=== PATIENT | female | born 1950 | race Caucasian/White ===

== ENCOUNTER 2021-11-20 09:00 | Outpatient (RCR) | payer MEDICARE, SELFPAY ==
--- NOTE | 2021-11-07 18:02 | PT.OIE ---
Current Diagnoses Other acute postprocedural pain (11/07/21) Abnormal posture (11/07/21) Weakness (11/07/21) Other specified postprocedural states (11/07/21) Visit Care Team Role Provider Type Other Providers Specialty: Address: Phone: Fax: Email: Zaida Cantu MD Family Provider Non-Staff Primary Care Provider Specialty: Medical Address: [address] [place], [address] Email: Diana Maciel PA-C Attending Provider Non-Staff Referring Provider Specialty: Medical Address: [address] [place], [address] Email: Physical Therapy Initial Evaluation PT-OP-A Visit Information Start: 11/04/21 17:04 Freq: Status: Active Protocol: Document 11/07/21 13:45 AW (Rec: 11/05/21 08:58 AW [id number]) Out-Patient Physical Therapy Visit Information Visit Information Visit Type Initial Evaluation Visit Start Time 13:00 Visit Stop Time 13:45 Total Visit Minutes 45 Visit Number 1 Number of RN CASE MANAGER Visits 0 Evaluation Information Evaluation Date 11/07/21 Precautions Precautions osteopenia PT-OP-B Current Condition Start: 11/04/21 17:04 Freq: Status: Active Protocol: Document 11/07/21 13:45 AW (Rec: 11/05/21 08:58 AW [id number]) Current Condition History of Current Condition Onset Date August 2021 Current Complaints decreased RUE strength; shooting pain R chest wall & along thoracotomy scar History of Current Condition Kristie underwent resection of right lower lobe for lung cancer via right thoracotomy on 08/19/21. She also had mediastinal lymph node dissection. She was limited in her RUE movement per protocol for several weeks and feels she got weaker. She no longer has any limitations. She has had persistent neuropathic pain (worse when she discontinued oxycodone) and right arm weakness since then. She had lower extremity swelling which was limiting her walking and interrupting her sleep. She has u/s to rule out DVT which was negative - no clot. Swelling has resolved completely. She used to walk briskly 30 minutes per day but has been less active since surgery. Residual neuropathic pain has now largely resolved but not completely. Sleep is better with gabapentin taken 3x daily . Pt reports chronic left knee pain due to OA. She gets injections every six months and will have her next injection on 11/20.She is now walking on her treadmill 3 miles/day. Rides stationary bike as well. PMH includes osteopenia, uterine fibroids, scoliosis ( 20 deg to the left with apex at L3(, B radius/ulna fracture with plates R arm, L rotator cuff tear. Prior Treatments and Tests No prior PT Future Testing and Treatments Planned 6 month follow up with oncology in February. Treatment Goals Patient/Caregiver Goals Lift 25 # bag of dog food with both arms. Lift groceries, Improve posture. Prior Functional Status Baseline Function- ADL's Independent Baseline Function- Mobility Independent Baseline Function- Other Could lift groceries with either arm without difficulty. PT-OP-C Subjective Start: 11/04/21 17:04 Freq: Status: Active Protocol: Document 11/07/21 13:45 AW (Rec: 11/07/21 14:14 AW [id number]) OP-PT Pain Assessment Pain Assessment Grid Paper Pain Assessment Grid Completed Yes: Shooting pain 4/10 along thoracotomy scar and anterior chest wall Home Pain Medication Use Pain Medications Used Yes Home Pain Medication Frequency Gabapentin 3x daily Patient Goal Reduce Comments Pain Comments Gabapentin is effective and helps pt sleep. No longer taking oxycodone. PT-OP-F Manual Assessment Start: 11/04/21 17:04 Freq: Status: Active Protocol: Document 11/07/21 13:45 AW (Rec: 11/07/21 14:14 AW [id number]) Manual Assessments Soft Tissue Assessment Soft Tissue Mobility Assessment Tight pec major, pec minor, levator scap, teres, lats - right side most affected. Tender along thoracotomy scar and right lateral ribs ~6-. Joint Mobility Assessment Joint Mobility Assessment GHJ glides WNL bilaterally without restriction Other Manual Assessments Other Manual Assessments Well-healed thoracotomy scar with fair to good mobility. PT-OP-H Neuro Start: 11/04/21 17:04 Freq: Status: Active Protocol: Document 11/07/21 13:45 AW (Rec: 11/07/21 17:33 AW [id number]) Sensation Evaluation Gross Sensation Gross Sensation Trunk Impaired Sensation Description Tingling,Burning Dermatome Impairments T4,T5,T6,T7,T8 Comments Summary Comments Burning, shooting pain and tingling along thoracotomy scar and anterior chest wall. PT-OP-J Posture/Palpation/Skin Start: 11/04/21 17:04 Freq: Status: Active Protocol: Document 11/07/21 13:45 AW (Rec: 11/07/21 17:33 AW [id number]) Posture Evaluation Comments Posture Comments Pt sits and stands with severely rounded shoulders. Left AC is elevated compared with right. Scapulae are excessively protracted. Leftward scoliosis in lumbar spine (apex L3). PT-OP-K Range of Motion Start: 11/04/21 17:04 Freq: Status: Active Protocol: Document 11/07/21 13:45 AW (Rec: 11/07/21 17:33 AW [id number]) Shoulder Goniometric Range of Motion Shoulder right Testing Position Sitting Flexion 140 Extension 65 Abduction 160 Horizontal Abduction 110 External Rotation at 0 degrees Abduction 80 Internal Rotation Behind Back (text) T8 left Shoulder ROM WFL Yes Testing Position Sitting Flexion 150 Extension 70 Abduction 162 Horizontal Abduction 105 External Rotation at 0 degrees Abduction 80 Internal Rotation Behind Back (text) T2 Shoulder ROM Limitations Shoulder ROM Limitations Soft Tissue Tightness Elbow/Forearm Range of Motion Elbow/Forearm ROM Limitations Comments Full ROM, no restriction PT-OP-M Strength Start: 11/04/21 17:04 Freq: Status: Active Protocol: Document 11/07/21 13:45 AW (Rec: 11/07/21 18:00 AW [id number]) Scapula Strength Scapula Manual Muscle Testing Right Elevation (C4) 5 Normal Adduction 4 Good Depression 4- Good- Shoulder Strength Shoulder Manual Muscle Testing Right Flexion 4 Good Extension 4 Good Abduction (C5) 4 Good External Rotation 4 Good Internal Rotation 4+ Good+ Left Flexion 4+ Good+ Extension 4+ Good+ Abduction (C5) 4+ Good+ External Rotation 4+ Good+ Internal Rotation 5 Normal PT-OP-Q Treatments Start: 11/04/21 17:04 Freq: Status: Active Protocol: Document 11/07/21 13:45 AW (Rec: 11/07/21 18:00 AW [id number]) Therapeutic Exercises Supine Exercises lower trap activation Supine Exercise Name lower trap activation Side bilateral Comments on table; pt can not get on/ off floor, will practice in standing at home pec stretch Supine Exercise Name pec stretch Side bilateral Equipment Used 1/2 foam roll Comments pt does not have equip at home Standing Exercises doorway pec stretch Standing Exercise Name doorway pec stretch Side bilateral Comments ~75-90 deg abduction; HEP Self-Care/Home Management Treatment Education Patient Education Home Exercise Program,Posture Other Education Educated pt on lymphedema risk due to mediastinal lymph node dissection. No edema noted today but pt understands precautions and need for treatment if swelling develops . Initiated postural education and issued short HEP to begin addressing tight pecs and weak scapular stabilizers. PT-OP-T Assessment and Plan Start: 11/04/21 17:04 Freq: Status: Active Protocol: Document 11/07/21 13:45 AW (Rec: 11/07/21 18:00 AW [id number]) Physical Therapy Assessment Rehab Potential Rehabilitation Potential Good Evaluation Complexity Number of Personal Factors/Comorbidities 1-2 Number of Body Systems Impaired 3 Clinical Presentation at Evaluation Stable Impairments Impairments Pain,Posture,ROM,Sensation, Soft Tissue Mobility,Strength Goals Three Impairment burning pain Teacher Public Health Goal (LTG) Kristie will report 50% reduction in burning pain at thoracotomy scar and anterior chest wall. LTG Duration 01/30/22 Two Impairment ROM Teacher Public Health Goal (LTG) Kristie will have right IR ROM measured by reaching behind her back to T5 or higher to improve ease with dressing and other self-care tasks. LTG Duration 01/30/22 One Impairment strength Short Term Goal (STG) Kristie will improve MMT to 4+/5 or greater in both shoulders STG Duration 12/19/21 Nursing Home Goal (LTG) Kristie will be able to lift grocery bags from floor to table height without increase in baseline pain LTG Duration 01/30/22 Assessment Summary Assessment Kristie is a 71 yo woman who attends outpatient physical therapy 2.5 months post- thoracotomy with right lower lobe resection to treat lung cancer. She also had mediastinal lymph node resection. All pathology had clear margins. Kristie now complains of burning pain along her thoracotomy scar and anterior chest wall. She is also concerned about loss of strength following restricted shoulder mobility after surgery. She presents with tightness in her pecs, levator scapula, and lats. She has crepitus along her clavicles with upper extremity overhead movements. Her RUE ROM is relatively similar to her LUE except for internal rotation which is affecting her ADL management. Kristie is expected to benefit from skilled PT to address her soft tissue mobility and strength. Managing neuropathic pain will be more challenging but could be incorporated into PT plan. Physical Therapy Plan Frequency and Duration Frequency of Treatment 2x/Week Duration of treatment (weeks) 12 Plan of Care Start Date 11/07/21 Plan of Care End Date 01/30/22 Therapeutic Interventions Therapeutic Interventions Home Exercise Program, Lymphedema Management,Manual Therapy,Self-Care/Home Management,Soft Tissue Mobilization,Therapeutic Activities,Therapeutic Exercises Modalities Cold Pack/Ice Massage,Electric Stimulation,Hot Packs, Ultrasound Next Visit Focus/Plan Next Note Type Treatment Note Next Visit Plan Assess rib mobility and breathing mechanics. STM pecs, lats, intercostals. Scar mobilization as needed. Review stretches. Work on posture and UE strength.
--- NOTE | 2021-11-07 18:02 | PT.OPPOC ---
Physical, Occupational & Speech Therapy At [facility] Current Diagnoses Other acute postprocedural pain (11/07/21) Abnormal posture (11/07/21) Weakness (11/07/21) Other specified postprocedural states (11/07/21) Visit Care Team Role Provider Type Other Providers Specialty: Address: Phone: Fax: Email: Zaida Cantu MD Family Provider Non-Staff Primary Care Provider Specialty: Medical Address: [address] [place] [address], [phone] Email: Diana Maciel PA-C Attending Provider Non-Staff Referring Provider Specialty: Medical Address: [address] [place], [address] Email: Plan Of Care PT-OP-T Assessment and Plan Start: 11/04/21 17:04 Freq: Status: Active Protocol: Document 11/07/21 13:45 AW (Rec: 11/07/21 18:00 AW [id number]) Physical Therapy Assessment Rehab Potential Rehabilitation Potential Good Evaluation Complexity Number of Personal Factors/Comorbidities 1-2 Number of Body Systems Impaired 3 Clinical Presentation at Evaluation Stable Impairments Impairments Pain,Posture,ROM,Sensation, Soft Tissue Mobility,Strength Goals Three Impairment burning pain Snf Goal (LTG) Kristie will report 50% reduction in burning pain at thoracotomy scar and anterior chest wall. LTG Duration 01/30/22 Two Impairment ROM Quality Reviewer Goal (LTG) Kristie will have right IR ROM measured by reaching behind her back to T5 or higher to improve ease with dressing and other self-care tasks. LTG Duration 01/30/22 One Impairment strength Short Term Goal (STG) Kristie will improve MMT to 4+/5 or greater in both shoulders STG Duration 12/19/21 Quality Reviewer Goal (LTG) Kristie will be able to lift grocery bags from floor to table height without increase in baseline pain LTG Duration 01/30/22 Assessment Summary Assessment Kristie is a 71 yo woman who attends outpatient physical therapy 2.5 months post- thoracotomy with right lower lobe resection to treat lung cancer. She also had mediastinal lymph node resection. All pathology had clear margins. Kristie now complains of burning pain along her thoracotomy scar and anterior chest wall. She is also concerned about loss of strength following restricted shoulder mobility after surgery. She presents with tightness in her pecs, levator scapula, and lats. She has crepitus along her clavicles with upper extremity overhead movements. Her RUE ROM is relatively similar to her LUE except for internal rotation which is affecting her ADL management. Kristie is expected to benefit from skilled PT to address her soft tissue mobility and strength. Managing neuropathic pain will be more challenging but could be incorporated into PT plan. Physical Therapy Plan Frequency and Duration Frequency of Treatment 2x/Week Duration of treatment (weeks) 12 Plan of Care Start Date 11/07/21 Plan of Care End Date 01/30/22 Therapeutic Interventions Therapeutic Interventions Home Exercise Program, Lymphedema Management,Manual Therapy,Self-Care/Home Management,Soft Tissue Mobilization,Therapeutic Activities,Therapeutic Exercises Modalities Cold Pack/Ice Massage,Electric Stimulation,Hot Packs, Ultrasound Next Visit Focus/Plan Next Note Type Treatment Note Next Visit Plan Assess rib mobility and breathing mechanics. STM pecs, lats, intercostals. Scar mobilization as needed. Review stretches. Work on posture and UE strength. Plan of Care Dates Plan of Care Start Date 11/07/21 Plan of Care End Date 01/30/22 Electronically Signed by: Mara Nguyen PT 11/07/21 7620 If you are in agreement with this Plan of Care, please return a signed and dated copy. I have reviewed this Plan of Care and certify that the skilled therapy services above are required to meet the patient?s needs. Physician Signature Date Printed Name and Credentials Clinical Instructor Signature Printed Name and Credentials
--- NOTE | 2021-11-13 16:27 | PT.OTN ---
Current Diagnoses Other acute postprocedural pain (11/13/21) Abnormal posture (11/13/21) Weakness (11/13/21) Other specified postprocedural states (11/13/21) Physical Therapy Treatment Note PT-OP-A Visit Information Start: 11/04/21 17:04 Freq: Status: Active Protocol: Document 11/13/21 14:40 AW (Rec: 11/13/21 16:25 AW [id number]) Out-Patient Physical Therapy Visit Information Visit Information Visit Type Treatment Note Visit Start Time 15:15 Visit Stop Time 16:00 Total Visit Minutes 45 Visit Number 2 Number of PROCESS IMPROVEMENT SPECIALIST Visits 0 Evaluation Information Evaluation Date 11/07/21 Precautions Precautions osteopenia PT-OP-B Current Condition Start: 11/04/21 17:04 Freq: Status: Active Protocol: Document 11/07/21 13:45 AW (Rec: 11/05/21 08:58 AW [id number]) Current Condition History of Current Condition Onset Date August 2021 Current Complaints decreased RUE strength; shooting pain R chest wall & along thoracotomy scar History of Current Condition Kristie underwent resection of right lower lobe for lung cancer via right thoracotomy on 08/19/21. She also had mediastinal lymph node dissection. She was limited in her RUE movement per protocol for several weeks and feels she got weaker. She no longer has any limitations. She has had persistent neuropathic pain (worse when she discontinued oxycodone) and right arm weakness since then. She had lower extremity swelling which was limiting her walking and interrupting her sleep. She has u/s to rule out DVT which was negative - no clot. Swelling has resolved completely. She used to walk briskly 30 minutes per day but has been less active since surgery. Residual neuropathic pain has now largely resolved but not completely. Sleep is better with gabapentin taken 3x daily . Pt reports chronic left knee pain due to OA. She gets injections every six months and will have her next injection on 11/20.She is now walking on her treadmill 3 miles/day. Rides stationary bike as well. PMH includes osteopenia, uterine fibroids, scoliosis ( 20 deg to the left with apex at L3(, B radius/ulna fracture with plates R arm, L rotator cuff tear. Prior Treatments and Tests No prior PT Future Testing and Treatments Planned 6 month follow up with oncology in February. Treatment Goals Patient/Caregiver Goals Lift 25 # bag of dog food with both arms. Lift groceries, Improve posture. Prior Functional Status Baseline Function- ADL's Independent Baseline Function- Mobility Independent Baseline Function- Other Could lift groceries with either arm without difficulty. PT-OP-C Subjective Start: 11/04/21 17:04 Freq: Status: Active Protocol: Document 11/13/21 14:40 AW (Rec: 11/13/21 16:25 AW [id number]) OP-PT Subjective Patient Comments Patient Comments Has some questions about stretches. Saw surgeon yesterday and is planning to have umbilical hernia repair in a few months. PT-OP-F Manual Assessment Start: 11/04/21 17:04 Freq: Status: Active Protocol: Document 11/07/21 13:45 AW (Rec: 11/07/21 14:14 AW [id number]) Manual Assessments Soft Tissue Assessment Soft Tissue Mobility Assessment Tight pec major, pec minor, levator scap, teres, lats - right side most affected. Tender along thoracotomy scar and right lateral ribs ~6-. Joint Mobility Assessment Joint Mobility Assessment GHJ glides WNL bilaterally without restriction Other Manual Assessments Other Manual Assessments Well-healed thoracotomy scar with fair to good mobility. PT-OP-H Neuro Start: 11/04/21 17:04 Freq: Status: Active Protocol: Document 11/07/21 13:45 AW (Rec: 11/07/21 17:33 AW [id number]) Sensation Evaluation Gross Sensation Gross Sensation Trunk Impaired Sensation Description Tingling,Burning Dermatome Impairments T4,T5,T6,T7,T8 Comments Summary Comments Burning, shooting pain and tingling along thoracotomy scar and anterior chest wall. PT-OP-J Posture/Palpation/Skin Start: 11/04/21 17:04 Freq: Status: Active Protocol: Document 11/07/21 13:45 AW (Rec: 11/07/21 17:33 AW [id number]) Posture Evaluation Comments Posture Comments Pt sits and stands with severely rounded shoulders. Left AC is elevated compared with right. Scapulae are excessively protracted. Leftward scoliosis in lumbar spine (apex L3). PT-OP-K Range of Motion Start: 11/04/21 17:04 Freq: Status: Active Protocol: Document 11/07/21 13:45 AW (Rec: 11/07/21 17:33 AW [id number]) Shoulder Goniometric Range of Motion Shoulder right Testing Position Sitting Flexion 140 Extension 65 Abduction 160 Horizontal Abduction 110 External Rotation at 0 degrees Abduction 80 Internal Rotation Behind Back (text) T8 left Shoulder ROM WFL Yes Testing Position Sitting Flexion 150 Extension 70 Abduction 162 Horizontal Abduction 105 External Rotation at 0 degrees Abduction 80 Internal Rotation Behind Back (text) T2 Shoulder ROM Limitations Shoulder ROM Limitations Soft Tissue Tightness Elbow/Forearm Range of Motion Elbow/Forearm ROM Limitations Comments Full ROM, no restriction PT-OP-M Strength Start: 11/04/21 17:04 Freq: Status: Active Protocol: Document 11/07/21 13:45 AW (Rec: 11/07/21 18:00 AW [id number]) Scapula Strength Scapula Manual Muscle Testing Right Elevation (C4) 5 Normal Adduction 4 Good Depression 4- Good- Shoulder Strength Shoulder Manual Muscle Testing Right Flexion 4 Good Extension 4 Good Abduction (C5) 4 Good External Rotation 4 Good Internal Rotation 4+ Good+ Left Flexion 4+ Good+ Extension 4+ Good+ Abduction (C5) 4+ Good+ External Rotation 4+ Good+ Internal Rotation 5 Normal PT-OP-Q Treatments Start: 11/04/21 17:04 Freq: Status: Active Protocol: Document 11/13/21 14:40 AW (Rec: 11/13/21 16:25 AW [id number]) Therapeutic Exercises Supine Exercises LTR Supine Exercise Name LTR diaphragmatic breathing Supine Exercise Name diaphragmatic breathing Sidelying Exercises open book Comments pt does not tolerate sidelying due to knee pain Sitting Exercises cervical retraction Sitting Exercise Name cervical retraction Comments HEP upper trap stretch Sitting Exercise Name upper trap stretch Side bilateral Comments HEP scapular retraction Sitting Exercise Name scapular retraction Side bilateral Comments HEP IR stretch Sitting Exercise Name IR stretch Equipment Used towel Comments HEP Standing Exercises GH ext, row Standing Exercise Name GH ext, row Side bilateral Resistance TB1 Reps/Minutes x12 Comments HEP doorway pec stretch Standing Exercise Name doorway pec stretch Side bilateral Comments ~75-90 deg abduction; HEP review Self-Care/Home Management Treatment Education Patient Education Home Exercise Program,Posture Other Education Added postural work, UT stretch, rows, and GH extensions for HEP PT-OP-T Assessment and Plan Start: 11/04/21 17:04 Freq: Status: Active Protocol: Document 11/13/21 14:40 AW (Rec: 11/13/21 16:25 AW [id number]) Physical Therapy Assessment Goals Three Impairment burning pain Mcfp Goal (LTG) Kristie will report 50% reduction in burning pain at thoracotomy scar and anterior chest wall. LTG Duration 01/30/22 Two Impairment ROM Dry Plasterer Helper Goal (LTG) Kristie will have right IR ROM measured by reaching behind her back to T5 or higher to improve ease with dressing and other self-care tasks. LTG Duration 01/30/22 One Impairment strength Short Term Goal (STG) Kristie will improve MMT to 4+/5 or greater in both shoulders STG Duration 12/19/21 Dry Plasterer Helper Goal (LTG) Kristie will be able to lift grocery bags from floor to table height without increase in baseline pain LTG Duration 01/30/22 Assessment Summary Assessment Kristie is highly motivated and most interested in exercise today. She responds well to postural education and exercise to reinforce. Will plan to assess rib mobility for this post-thoracotomy pt in next few visits. Physical Therapy Plan Frequency and Duration Frequency of Treatment 2x/Week Duration of treatment (weeks) 12 Plan of Care Start Date 11/07/21 Plan of Care End Date 01/30/22 Therapeutic Interventions Therapeutic Interventions Home Exercise Program, Lymphedema Management,Manual Therapy,Self-Care/Home Management,Soft Tissue Mobilization,Therapeutic Activities,Therapeutic Exercises Modalities Cold Pack/Ice Massage,Electric Stimulation,Hot Packs, Ultrasound Next Visit Focus/Plan Next Note Type Treatment Note Next Visit Plan *Pt does not tolerate sidelying.* Assess rib mobility. STM pecs, lats, intercostals. Scar mobilization as needed. Review HEP and progress where able.
--- NOTE | 2021-11-18 12:24 | PT.OTN ---
Current Diagnoses Other acute postprocedural pain (11/18/21) Abnormal posture (11/18/21) Weakness (11/18/21) Other specified postprocedural states (11/18/21) Physical Therapy Treatment Note PT-OP-A Visit Information Start: 11/04/21 17:04 Freq: Status: Active Protocol: Document 11/18/21 11:19 [facility] (Rec: 11/18/21 12:23 [facility] [id number]) Out-Patient Physical Therapy Visit Information Visit Information Visit Type Treatment Note Visit Note 04/18 Visit Start Time 11:20 Visit Stop Time 12:05 Total Visit Minutes 45 Visit Number 3 Number of SALES ENGINEERING MANAGER Visits 0 PT-OP-B Current Condition Start: 11/04/21 17:04 Freq: Status: Active Protocol: Document 11/07/21 13:45 AW (Rec: 11/05/21 08:58 AW [id number]) Current Condition History of Current Condition Onset Date August 2021 Current Complaints decreased RUE strength; shooting pain R chest wall & along thoracotomy scar History of Current Condition Kristie underwent resection of right lower lobe for lung cancer via right thoracotomy on 08/19/21. She also had mediastinal lymph node dissection. She was limited in her RUE movement per protocol for several weeks and feels she got weaker. She no longer has any limitations. She has had persistent neuropathic pain (worse when she discontinued oxycodone) and right arm weakness since then. She had lower extremity swelling which was limiting her walking and interrupting her sleep. She has u/s to rule out DVT which was negative - no clot. Swelling has resolved completely. She used to walk briskly 30 minutes per day but has been less active since surgery. Residual neuropathic pain has now largely resolved but not completely. Sleep is better with gabapentin taken 3x daily . Pt reports chronic left knee pain due to OA. She gets injections every six months and will have her next injection on 11/20.She is now walking on her treadmill 3 miles/day. Rides stationary bike as well. PMH includes osteopenia, uterine fibroids, scoliosis ( 20 deg to the left with apex at L3(, B radius/ulna fracture with plates R arm, L rotator cuff tear. Prior Treatments and Tests No prior PT Future Testing and Treatments Planned 6 month follow up with oncology in February. Treatment Goals Patient/Caregiver Goals Lift 25 # bag of dog food with both arms. Lift groceries, Improve posture. Prior Functional Status Baseline Function- ADL's Independent Baseline Function- Mobility Independent Baseline Function- Other Could lift groceries with either arm without difficulty. PT-OP-C Subjective Start: 11/04/21 17:04 Freq: Status: Active Protocol: Document 11/18/21 11:19 [facility] (Rec: 11/18/21 12:23 [facility] [id number]) OP-PT Subjective Patient Comments Patient Comments Pt reports she has some questions w/HEP PT-OP-F Manual Assessment Start: 11/04/21 17:04 Freq: Status: Active Protocol: Document 11/07/21 13:45 AW (Rec: 11/07/21 14:14 AW [id number]) Manual Assessments Soft Tissue Assessment Soft Tissue Mobility Assessment Tight pec major, pec minor, levator scap, teres, lats - right side most affected. Tender along thoracotomy scar and right lateral ribs ~6-. Joint Mobility Assessment Joint Mobility Assessment GHJ glides WNL bilaterally without restriction Other Manual Assessments Other Manual Assessments Well-healed thoracotomy scar with fair to good mobility. PT-OP-H Neuro Start: 11/04/21 17:04 Freq: Status: Active Protocol: Document 11/07/21 13:45 AW (Rec: 11/07/21 17:33 AW [id number]) Sensation Evaluation Gross Sensation Gross Sensation Trunk Impaired Sensation Description Tingling,Burning Dermatome Impairments T4,T5,T6,T7,T8 Comments Summary Comments Burning, shooting pain and tingling along thoracotomy scar and anterior chest wall. PT-OP-J Posture/Palpation/Skin Start: 11/04/21 17:04 Freq: Status: Active Protocol: Document 11/07/21 13:45 AW (Rec: 11/07/21 17:33 AW [id number]) Posture Evaluation Comments Posture Comments Pt sits and stands with severely rounded shoulders. Left AC is elevated compared with right. Scapulae are excessively protracted. Leftward scoliosis in lumbar spine (apex L3). PT-OP-K Range of Motion Start: 11/04/21 17:04 Freq: Status: Active Protocol: Document 11/07/21 13:45 AW (Rec: 11/07/21 17:33 AW [id number]) Shoulder Goniometric Range of Motion Shoulder right Testing Position Sitting Flexion 140 Extension 65 Abduction 160 Horizontal Abduction 110 External Rotation at 0 degrees Abduction 80 Internal Rotation Behind Back (text) T8 left Shoulder ROM WFL Yes Testing Position Sitting Flexion 150 Extension 70 Abduction 162 Horizontal Abduction 105 External Rotation at 0 degrees Abduction 80 Internal Rotation Behind Back (text) T2 Shoulder ROM Limitations Shoulder ROM Limitations Soft Tissue Tightness Elbow/Forearm Range of Motion Elbow/Forearm ROM Limitations Comments Full ROM, no restriction PT-OP-M Strength Start: 11/04/21 17:04 Freq: Status: Active Protocol: Document 11/07/21 13:45 AW (Rec: 11/07/21 18:00 AW [id number]) Scapula Strength Scapula Manual Muscle Testing Right Elevation (C4) 5 Normal Adduction 4 Good Depression 4- Good- Shoulder Strength Shoulder Manual Muscle Testing Right Flexion 4 Good Extension 4 Good Abduction (C5) 4 Good External Rotation 4 Good Internal Rotation 4+ Good+ Left Flexion 4+ Good+ Extension 4+ Good+ Abduction (C5) 4+ Good+ External Rotation 4+ Good+ Internal Rotation 5 Normal PT-OP-Q Treatments Start: 11/04/21 17:04 Freq: Status: Active Protocol: Document 11/18/21 11:19 [facility] (Rec: 11/18/21 12:23 [facility] [id number]) Therapeutic Exercises Sitting Exercises self mob Sitting Exercise Name R rib med w/R SB cervical retraction Sitting Exercise Name cervical retraction Reps/Minutes 10 Comments HEP upper trap stretch Sitting Exercise Name upper trap stretch Side bilateral Reps/Minutes 30sec Comments HEP scapular retraction Sitting Exercise Name scapular retraction Side bilateral Reps/Minutes 5 Comments HEP Standing Exercises GH ext, row Standing Exercise Name GH ext, row Side bilateral Resistance TB1 Reps/Minutes x12 ea Comments HEP doorway pec stretch Standing Exercise Name doorway pec stretch Side bilateral Reps/Minutes 30sec Comments 90 deg abduction; HEP review- changed to B UEs at the same time step fwd Manual Therapy Treatment Soft Tissue Mobilization intercostals Body Location R Mobilization Type Rolling Intensity/Depth Moderate Body Position Sidelying Comments around ribs 5-7 scar Body Location R Mobilization Type Myofascial Release Intensity/Depth Superficial Body Position Sidelying Comments proped w/pillows Joint Mobilizations ribs Joint R (focus around ribs7-10) w/c/ r into R SB Direction med FM Grade II PT-OP-T Assessment and Plan Start: 11/04/21 17:04 Freq: Status: Active Protocol: Document 11/18/21 11:19 [facility] (Rec: 11/18/21 12:23 [facility] [id number]) Physical Therapy Assessment Goals Three Impairment burning pain [facility] Goal (LTG) Kristie will report 50% reduction in burning pain at thoracotomy scar and anterior chest wall. LTG Duration 01/30/22 Two Impairment ROM Cloth Sponger Goal (LTG) Kristie will have right IR ROM measured by reaching behind her back to T5 or higher to improve ease with dressing and other self-care tasks. LTG Duration 01/30/22 One Impairment strength Short Term Goal (STG) Kristie will improve MMT to 4+/5 or greater in both shoulders STG Duration 12/19/21 [facility] Goal (LTG) Kristie will be able to lift grocery bags from floor to table height without increase in baseline pain LTG Duration 01/30/22 Assessment Summary Assessment Pt did require cues with exercises but after review, pt did well with form. She has restrictions of ribcage B and tightness of scar tissue that is likely contributing toher pain. Some improvement w/R SB after manual treatment.Pt ecnourage dto ice if sore. Physical Therapy Plan Frequency and Duration Frequency of Treatment 2x/Week Duration of treatment (weeks) 12 Plan of Care Start Date 11/07/21 Plan of Care End Date 01/30/22 Next Visit Focus/Plan Next Note Type Treatment Note Next Visit Plan work on rib mobility, pecs, lats, intercostals, scar mobs, quick review to HEP
--- NOTE | 2021-11-20 14:29 | PT.OTN ---
Current Diagnoses Other acute postprocedural pain (11/20/21) Abnormal posture (11/20/21) Weakness (11/20/21) Other specified postprocedural states (11/20/21) Physical Therapy Treatment Note PT-OP-A Visit Information Start: 11/04/21 17:04 Freq: Status: Active Protocol: Document 11/20/21 14:26 [facility] (Rec: 11/20/21 14:28 [facility] [id number]) Out-Patient Physical Therapy Visit Information Visit Information Visit Type Treatment Note Visit Note 05/19 Visit Start Time 09:06 Visit Stop Time 09:48 Total Visit Minutes 42 Visit Number 4 Number of LEAN MANUFACTURING ENGINEER Visits 0 PT-OP-B Current Condition Start: 11/04/21 17:04 Freq: Status: Active Protocol: Document 11/07/21 13:45 AW (Rec: 11/05/21 08:58 AW [id number]) Current Condition History of Current Condition Onset Date August 2021 Current Complaints decreased RUE strength; shooting pain R chest wall & along thoracotomy scar History of Current Condition Kristie underwent resection of right lower lobe for lung cancer via right thoracotomy on 08/19/21. She also had mediastinal lymph node dissection. She was limited in her RUE movement per protocol for several weeks and feels she got weaker. She no longer has any limitations. She has had persistent neuropathic pain (worse when she discontinued oxycodone) and right arm weakness since then. She had lower extremity swelling which was limiting her walking and interrupting her sleep. She has u/s to rule out DVT which was negative - no clot. Swelling has resolved completely. She used to walk briskly 30 minutes per day but has been less active since surgery. Residual neuropathic pain has now largely resolved but not completely. Sleep is better with gabapentin taken 3x daily . Pt reports chronic left knee pain due to OA. She gets injections every six months and will have her next injection on 11/20.She is now walking on her treadmill 3 miles/day. Rides stationary bike as well. PMH includes osteopenia, uterine fibroids, scoliosis ( 20 deg to the left with apex at L3(, B radius/ulna fracture with plates R arm, L rotator cuff tear. Prior Treatments and Tests No prior PT Future Testing and Treatments Planned 6 month follow up with oncology in February. Treatment Goals Patient/Caregiver Goals Lift 25 # bag of dog food with both arms. Lift groceries, Improve posture. Prior Functional Status Baseline Function- ADL's Independent Baseline Function- Mobility Independent Baseline Function- Other Could lift groceries with either arm without difficulty. PT-OP-C Subjective Start: 11/04/21 17:04 Freq: Status: Active Protocol: Document 11/20/21 14:26 [facility] (Rec: 11/20/21 14:28 [facility] [id number]) OP-PT Subjective Patient Comments Patient Comments Pt reports she felt okay after last session. Feels good about HEP PT-OP-F Manual Assessment Start: 11/04/21 17:04 Freq: Status: Active Protocol: Document 11/07/21 13:45 AW (Rec: 11/07/21 14:14 AW [id number]) Manual Assessments Soft Tissue Assessment Soft Tissue Mobility Assessment Tight pec major, pec minor, levator scap, teres, lats - right side most affected. Tender along thoracotomy scar and right lateral ribs ~6-. Joint Mobility Assessment Joint Mobility Assessment GHJ glides WNL bilaterally without restriction Other Manual Assessments Other Manual Assessments Well-healed thoracotomy scar with fair to good mobility. PT-OP-H Neuro Start: 11/04/21 17:04 Freq: Status: Active Protocol: Document 11/07/21 13:45 AW (Rec: 11/07/21 17:33 AW [id number]) Sensation Evaluation Gross Sensation Gross Sensation Trunk Impaired Sensation Description Tingling,Burning Dermatome Impairments T4,T5,T6,T7,T8 Comments Summary Comments Burning, shooting pain and tingling along thoracotomy scar and anterior chest wall. PT-OP-J Posture/Palpation/Skin Start: 11/04/21 17:04 Freq: Status: Active Protocol: Document 11/07/21 13:45 AW (Rec: 11/07/21 17:33 AW [id number]) Posture Evaluation Comments Posture Comments Pt sits and stands with severely rounded shoulders. Left AC is elevated compared with right. Scapulae are excessively protracted. Leftward scoliosis in lumbar spine (apex L3). PT-OP-K Range of Motion Start: 11/04/21 17:04 Freq: Status: Active Protocol: Document 11/07/21 13:45 AW (Rec: 11/07/21 17:33 AW [id number]) Shoulder Goniometric Range of Motion Shoulder right Testing Position Sitting Flexion 140 Extension 65 Abduction 160 Horizontal Abduction 110 External Rotation at 0 degrees Abduction 80 Internal Rotation Behind Back (text) T8 left Shoulder ROM WFL Yes Testing Position Sitting Flexion 150 Extension 70 Abduction 162 Horizontal Abduction 105 External Rotation at 0 degrees Abduction 80 Internal Rotation Behind Back (text) T2 Shoulder ROM Limitations Shoulder ROM Limitations Soft Tissue Tightness Elbow/Forearm Range of Motion Elbow/Forearm ROM Limitations Comments Full ROM, no restriction PT-OP-M Strength Start: 11/04/21 17:04 Freq: Status: Active Protocol: Document 11/07/21 13:45 AW (Rec: 11/07/21 18:00 AW [id number]) Scapula Strength Scapula Manual Muscle Testing Right Elevation (C4) 5 Normal Adduction 4 Good Depression 4- Good- Shoulder Strength Shoulder Manual Muscle Testing Right Flexion 4 Good Extension 4 Good Abduction (C5) 4 Good External Rotation 4 Good Internal Rotation 4+ Good+ Left Flexion 4+ Good+ Extension 4+ Good+ Abduction (C5) 4+ Good+ External Rotation 4+ Good+ Internal Rotation 5 Normal PT-OP-Q Treatments Start: 11/04/21 17:04 Freq: Status: Active Protocol: Document 11/20/21 14:26 [facility] (Rec: 11/20/21 14:28 [facility] [id number]) Manual Therapy Treatment Soft Tissue Mobilization pecs Body Location R Mobilization Type Rolling,Strumming Intensity/Depth Moderate Body Position Supine post Body Location R rhomboids, lats Mobilization Type Rolling,Strumming Intensity/Depth Moderate Body Position Sitting intercostals Body Location R Mobilization Type Rolling Intensity/Depth Moderate Body Position Sitting Comments around ribs 4-8 scar Body Location R Mobilization Type Myofascial Release Intensity/Depth Superficial Body Position Sitting PT-OP-T Assessment and Plan Start: 11/04/21 17:04 Freq: Status: Active Protocol: Document 11/20/21 14:26 [facility] (Rec: 11/20/21 14:28 [facility] [id number]) Physical Therapy Assessment Goals Three Impairment burning pain Street Openings Inspector Goal (LTG) Kristie will report 50% reduction in burning pain at thoracotomy scar and anterior chest wall. LTG Duration 01/30/22 Two Impairment ROM Jail Goal (LTG) Kristie will have right IR ROM measured by reaching behind her back to T5 or higher to improve ease with dressing and other self-care tasks. LTG Duration 01/30/22 One Impairment strength Short Term Goal (STG) Kristie will improve MMT to 4+/5 or greater in both shoulders STG Duration 12/19/21 [facility] Goal (LTG) Kristie will be able to lift grocery bags from floor to table height without increase in baseline pain LTG Duration 01/30/22 Assessment Summary Assessment Pt had improved mobility of scap retraciton w/manual teratment and imrpoved rotation. MOre notable tightness on R side Physical Therapy Plan Frequency and Duration Frequency of Treatment 2x/Week Duration of treatment (weeks) 12 Plan of Care Start Date 11/07/21 Plan of Care End Date 01/30/22 Next Visit Focus/Plan Next Note Type Treatment Note Next Visit Plan work on rib mobility, pecs, lats, intercostals, scar mobs
--- NOTE | 2021-11-26 12:19 | PT-OP ANOTE ---
Called pt per request. Pt notes pain was worse 2 days after therapy (Thursday AM) and pain returned to the ribcage and has had to inc gabapentin. It feels like she back tracked to how she felt about 1.5 months after surgery. She cancelled PT tomorrow d/t this. Discussed w/pt that it may be d/t inflammation as it is a very delayed response from her session. When asked, pt denies doing anything else different. Pt encouraged to ice but ice irritates it so pt encouraged to continue gentle activity like walking, cont her exercises as long as they are not painful and keep in touch w/PT. Discussed this is unlikely permanent damage and more likely an inflammatory response.
--- NOTE | 2021-12-25 14:54 | PT.OPDS ---
Current Diagnoses Other acute postprocedural pain (11/20/21) Abnormal posture (11/20/21) Weakness (11/20/21) Other specified postprocedural states (11/20/21) Visit Care Team Role Provider Type Other Providers Specialty: Address: Phone: Fax: Email: Zaida Cantu MD Family Provider Non-Staff Primary Care Provider Specialty: Medical Address: [address] [place], [address] Email: Diana Maciel PA-C Attending Provider Non-Staff Referring Provider Specialty: Medical Address: [address] [place], [address] Email: Visit Number Visit Number 4 Discharge Summary PT-OP-B Current Condition Start: 11/04/21 17:04 Freq: Status: Active Protocol: Document 11/07/21 13:45 AW (Rec: 11/05/21 08:58 AW [id number]) Current Condition History of Current Condition Onset Date August 2021 Current Complaints decreased RUE strength; shooting pain R chest wall & along thoracotomy scar History of Current Condition Kristie underwent resection of right lower lobe for lung cancer via right thoracotomy on 08/19/21. She also had mediastinal lymph node dissection. She was limited in her RUE movement per protocol for several weeks and feels she got weaker. She no longer has any limitations. She has had persistent neuropathic pain (worse when she discontinued oxycodone) and right arm weakness since then. She had lower extremity swelling which was limiting her walking and interrupting her sleep. She has u/s to rule out DVT which was negative - no clot. Swelling has resolved completely. She used to walk briskly 30 minutes per day but has been less active since surgery. Residual neuropathic pain has now largely resolved but not completely. Sleep is better with gabapentin taken 3x daily . Pt reports chronic left knee pain due to OA. She gets injections every six months and will have her next injection on 11/20.She is now walking on her treadmill 3 miles/day. Rides stationary bike as well. PMH includes osteopenia, uterine fibroids, scoliosis ( 20 deg to the left with apex at L3(, B radius/ulna fracture with plates R arm, L rotator cuff tear. Prior Treatments and Tests No prior PT Future Testing and Treatments Planned 6 month follow up with oncology in February. Treatment Goals Patient/Caregiver Goals Lift 25 # bag of dog food with both arms. Lift groceries, Improve posture. Prior Functional Status Baseline Function- ADL's Independent Baseline Function- Mobility Independent Baseline Function- Other Could lift groceries with either arm without difficulty. PT-OP-C Subjective Start: 11/04/21 17:04 Freq: Status: Active Protocol: Document 11/20/21 14:26 [facility] (Rec: 11/20/21 14:28 [facility] [id number]) OP-PT Subjective Patient Comments Patient Comments Pt reports she felt okay after last session. Feels good about HEP PT-OP-F Manual Assessment Start: 11/04/21 17:04 Freq: Status: Active Protocol: Document 11/07/21 13:45 AW (Rec: 11/07/21 14:14 AW [id number]) Manual Assessments Soft Tissue Assessment Soft Tissue Mobility Assessment Tight pec major, pec minor, levator scap, teres, lats - right side most affected. Tender along thoracotomy scar and right lateral ribs ~6-. Joint Mobility Assessment Joint Mobility Assessment GHJ glides WNL bilaterally without restriction Other Manual Assessments Other Manual Assessments Well-healed thoracotomy scar with fair to good mobility. PT-OP-H Neuro Start: 11/04/21 17:04 Freq: Status: Active Protocol: Document 11/07/21 13:45 AW (Rec: 11/07/21 17:33 AW [id number]) Sensation Evaluation Gross Sensation Gross Sensation Trunk Impaired Sensation Description Tingling,Burning Dermatome Impairments T4,T5,T6,T7,T8 Comments Summary Comments Burning, shooting pain and tingling along thoracotomy scar and anterior chest wall. PT-OP-J Posture/Palpation/Skin Start: 11/04/21 17:04 Freq: Status: Active Protocol: Document 11/07/21 13:45 AW (Rec: 11/07/21 17:33 AW [id number]) Posture Evaluation Comments Posture Comments Pt sits and stands with severely rounded shoulders. Left AC is elevated compared with right. Scapulae are excessively protracted. Leftward scoliosis in lumbar spine (apex L3). PT-OP-K Range of Motion Start: 11/04/21 17:04 Freq: Status: Active Protocol: Document 11/07/21 13:45 AW (Rec: 11/07/21 17:33 AW [id number]) Shoulder Goniometric Range of Motion Shoulder right Testing Position Sitting Flexion 140 Extension 65 Abduction 160 Horizontal Abduction 110 External Rotation at 0 degrees Abduction 80 Internal Rotation Behind Back (text) T8 left Shoulder ROM WFL Yes Testing Position Sitting Flexion 150 Extension 70 Abduction 162 Horizontal Abduction 105 External Rotation at 0 degrees Abduction 80 Internal Rotation Behind Back (text) T2 Shoulder ROM Limitations Shoulder ROM Limitations Soft Tissue Tightness Elbow/Forearm Range of Motion Elbow/Forearm ROM Limitations Comments Full ROM, no restriction PT-OP-M Strength Start: 11/04/21 17:04 Freq: Status: Active Protocol: Document 11/07/21 13:45 AW (Rec: 11/07/21 18:00 AW [id number]) Scapula Strength Scapula Manual Muscle Testing Right Elevation (C4) 5 Normal Adduction 4 Good Depression 4- Good- Shoulder Strength Shoulder Manual Muscle Testing Right Flexion 4 Good Extension 4 Good Abduction (C5) 4 Good External Rotation 4 Good Internal Rotation 4+ Good+ Left Flexion 4+ Good+ Extension 4+ Good+ Abduction (C5) 4+ Good+ External Rotation 4+ Good+ Internal Rotation 5 Normal PT-OP-T Assessment and Plan Start: 11/04/21 17:04 Freq: Status: Active Protocol: Document 12/25/21 14:48 AW (Rec: 12/25/21 14:53 AW [id number]) Physical Therapy Assessment Impairments Impairments Pain,Posture,ROM,Sensation, Soft Tissue Mobility,Strength Goals Three Impairment burning pain [facility] Goal (LTG) Kristie will report 50% reduction in burning pain at thoracotomy scar and anterior chest wall. LTG Duration 01/30/22 Two Impairment ROM [facility] Goal (LTG) Kristie will have right IR ROM measured by reaching behind her back to T5 or higher to improve ease with dressing and other self-care tasks. LTG Duration 01/30/22 One Impairment strength Short Term Goal (STG) Kristie will improve MMT to 4+/5 or greater in both shoulders STG Duration 12/19/21 Labor Economics Teacher Goal (LTG) Kristie will be able to lift grocery bags from floor to table height without increase in baseline pain LTG Duration 01/30/22 Physical Therapy Plan Discharge Physical Therapy Discharge Reasons Patient Request Discharge Comments Pt called to request discharge . She was concerned that her treatment here had resulted in a regression to worse pain. She is back on gabapentin and robaxin at this time. She expressed gratitude for her care here and had no bad feelings but has chosen to pursue PT care at another clinic. She states she would be happy to return for another issue but is more comfortable moving on from her plan of care at [facility].
== END 2021-12-26 08:43 | disposition home or self-care (01) ==
LOC: PHYS 09:00
PROVIDERS: Family Provider Internal Medicine Geriatric Medicine; PCP Internal Medicine Geriatric Medicine; Referring Provider Physician Assistant; Visit Provider Physician Assistant
DX: Z98.890 Other specified postprocedural states (principal); G89.18 Other acute postprocedural pain; R29.3 Abnormal posture; R53.1 Weakness
CPT/HCPCS: 97110; 97140; 97162

== ENCOUNTER → 2023-02-21 10:42 | Outpatient (CLI) | payer MEDICARE, SELFPAY ==
--- NOTE | 2023-02-21 | DI.MRI.S_ITS ---
PROCEDURE: MR CERVICAL SPINE WO CON INDICATIONS: NECK PAIN WITH RADICULOPATHY TECHNIQUE: Noncontrast sagittal T1 spin echo and T2 fast spin echo, sagittal STIR, foraminal oblique sagittal T2 fast spin echo, and axial gradient echo or T2 fast spin echo through the cervical spine. COMPARISON: None. FINDINGS: Image quality: Excellent. Alignment and Curvature: Mild reversal the normal cervical lordosis centered at C5. There is grade 1 anterolisthesis of C2 on C3, C3 on C4 and C4 on C5. Mild retrolisthesis of C5 on C6. Mild anterolisthesis of C7 on T1. Bone Marrow: Mild Modic type 1 degenerative endplate changes, most pronounced at C4-C5. Marrow demonstrates normal overall signal. Spinal Cord: Visualized spinal cord has normal size and signal. No cerebellar tonsillar herniation. Paraspinous Soft Tissues: No paravertebral masses. Prevertebral soft tissues are normal in thickness. C2-C3: No central canal or neural foraminal stenosis. C3-C4: Disc desiccation height loss. Mild posterior disc osteophyte complex. Mild central canal stenosis. Facet and uncovertebral arthropathy. Severe left and moderate right neural foraminal stenosis. C4-C5: Disc desiccation height loss. Posterior disc osteophyte complex. Mild central canal stenosis. Facet and uncovertebral arthropathy. Severe left and mild right neural foraminal stenosis. C5-C6: Disc desiccation height loss. Minimal posterior disc osteophyte complex. Mild central canal stenosis. Facet and uncovertebral arthropathy. Mild bilateral neural foraminal stenosis. C6-C7: Disc desiccation and height loss. Posterior disc osteophyte complex. Mild central canal stenosis. Facet and uncovertebral arthropathy. Moderate bilateral neural foraminal stenosis. C7-T1: Disc desiccation height loss. No central canal or neural foraminal stenosis. IMPRESSION: 1. Multilevel degenerative changes of the cervical spine as described above. 2. There is mild multilevel central canal stenosis. 3. Severe neural foraminal stenosis on the left at C3-C4 and C4-C5. Dictated by: Josafat Pang M.D. on 02/23/2023 at 9:09 Approved by: Josafat Pang M.D. on 02/23/2023 at 9:38
== END ==
LOC: MRI 10:44
PROVIDERS: Family Provider Internal Medicine Geriatric Medicine; PCP Internal Medicine Geriatric Medicine; Referring Provider Physical Medicine & Rehabilitation Pain Medicine; Visit Provider Physical Medicine & Rehabilitation Pain Medicine
DX: M47.812 Spondylosis without myelopathy or radiculopathy, cervical region (principal); M48.02 Spinal stenosis, cervical region; M54.2 Cervicalgia
CPT/HCPCS: 72141